=== PATIENT | female | born 1950 | race Caucasian/White ===

== ENCOUNTER 2022-06-30 14:51 | Emergency (ER) | payer MEDICARE ==
[2022-06-30] MEDS ORDERED: Acetaminophen/HYDROcodone 325-5 MG Tab PO ONE (16:20)
[2022-06-30] MEDS ORDERED: Take Home: Acetaminophen/HYDROcodone 325-5 MG, 5 Tab Pack PO ONE (16:52)
[2022-06-30] MEDS ORDERED: Take Home: Orphenadrine 100 MG Tab.ER, 4 Tab Pack PO ONE (16:52)
== END 2022-06-30 17:20 | disposition home or self-care (01) ==
LOC: VM.ED 14:51
DX: S06.0XAA Concussion with loss of consciousness status unknown, initial encounter (principal); I10 Essential (primary) hypertension; S52.502A Unspecified fracture of the lower end of left radius, initial encounter for closed fracture; Z88.6 Allergy status to analgesic agent; W10.8XXA Fall (on) (from) other stairs and steps, initial encounter
CPT/HCPCS: 70450; 72125; 73110-LT; 99284; A9270-GY